=== PATIENT | female | born 1970 | race American Indian/Alaskan Native ===

== ENCOUNTER 2018-01-11 14:16 | Inpatient (IN) | payer MEDICAID ==
[2018-01-11 14:16] VITALS: BMI 33.9
[2018-01-11] MEDS ORDERED: Sodium Chloride 0.9% 1,000 ML IV ONE (15:06)
[2018-01-11 15:35] LABS: BASO # 0.1 K/uL (0.0-0.2); BASO % 1.1 % (0.0-2.0); EOS % 0.5 % (0.0-4.0); HEMOGLOBIN 12.7 g/dL (11.0-16.0); LYMPH # 2.2 K/uL (1.0-4.3); MEAN CELL VOLUME 85.4 fL (81.0-99.0); MEAN CORPUSCULAR HEMOGLOBIN 28.7 pg (27.0-31.0); MEAN CORPUSCULAR HGB CONC 33.6 g/dL (33.0-37.0); MEAN PLATELET VOLUME 8.4 fL (7.2-11.7); MONO # 0.3 K/uL (0.0-0.8); MONO % 3.7 % (0.0-10.0); NEUT # 4.9 K/uL (1.8-7.0); NEUT % 65.7 % (50.0-75.0); RBC 4.41 Mil/uL (3.80-5.20); RED CELL DISTRIBUTION WIDTH 13.4 % (11.5-14.5); WHITE BLOOD COUNT 7.5 K/uL (4.8-10.8)
[2018-01-11 15:41] LABS: SQUAMOUS EPITHIAL < 1 /hpf (0-5); URINE BILIRUBIN NEGATIVE (NEGATIVE); URINE BLOOD NEGATIVE (NEGATIVE); URINE CLARITY Clear (Clear); URINE COLOR Yellow (YELLOW); URINE GLUCOSE (UA) NORMAL (Normal); URINE LEUKOCYTE ESTERASE NEG Leu/uL (Negative); URINE PROTEIN NEGATIVE (NEGATIVE); URINE UROBILINOGEN NORMAL mg/dL (0.2-1.0)
[2018-01-11 15:42] LABS: INR 1.1; PROTHROMBIN TIME 11.8 SECONDS (9.7-12.2)
[2018-01-11 15:52] LABS: ALBUMIN 3.9 g/dL (3.5-5.0); CALCIUM 8.7 mg/dl (8.6-10.4); GFR AFRICAN-AMERICAN > 60; GFR NON-AFRICAN AMERICAN > 60
[2018-01-11 15:53] LABS: ALT/SGPT 10 U/L (9-52); AST/SGOT 25 U/L (14-36); BLOOD UREA NITROGEN 7 mg/dL (7-17)
[2018-01-11] MEDS ORDERED: Metoprolol Succinate 25 mg XL Tab PO ONE (16:20)
--- NOTE | 2018-01-11 16:31 | RAD ---
PROCEDURE: CHEST RADIOGRAPH, 1 VIEW HISTORY: Chest pain COMPARISON: 01/08/2016. FINDINGS: LUNGS: The lungs are well inflated and clear. PLEURA: No pneumothorax or pleural fluid seen. CARDIOVASCULAR: The heart is normal in size. OSSEOUS STRUCTURES: No significant abnormalities. VISUALIZED UPPER ABDOMEN: Normal. OTHER FINDINGS: None. IMPRESSION: No active pulmonary disease.
--- NOTE | 2018-01-11 16:48 | C.PDOC ---
History Of Present Illness 47 yo female w/PMHx of CAD, HTN, BIBA for evaluation of Left sided chest pain gradually developed since yesterday. Pt reports, " under a lot of stress now because of my son, had some argument with him yesterday'. Pt sts, this AM developed throat tightness " was unable to swallow", associated with chest tightness, dyspnea. Pt sts, was given medication by ambulance ( ASA 325mg) and at present time, [id number]. Pt admits, had card cath and stress done 3 yrs ago with normal results. Otherwise, pt denies headache,dizziness, visual changes, focal deficits, neck pain, diaphoresis, palpitation, cough, wheezing, abd. pain, N/V/D, back pain. At the time of evaluation, pt appears comfortable, not in any apparent distress. Time Seen by Provider: 01/11/18 14:44 Chief Complaint (Nursing): Chest Pain History Per: Patient Onset/Duration Of Symptoms: Gradual Past Medical History Reviewed: Historical Data, Nursing Documentation, Vital Signs Vital Signs: Last Vital Signs Temp 98.8 F 01/11/18 14:27 Pulse 70 01/11/18 14:27 Resp 16 01/11/18 14:27 BP 146/84 01/11/18 14:27 Pulse Ox 99 01/11/18 16:55 - Medical History PMH: Asthma, Diabetes, HTN Denies: Chronic Kidney Disease Surgical History: Endoscopy - [facility] Procedures ESOPHAGOGASTRODUODENOSCOPY [EGD] W/CLOSED BIOPSY (12/20/14) Family History: States: Unknown Family Hx - Social History Hx Tobacco Use: No Hx Alcohol Use: No Hx Substance Use: No - Immunization History Hx Tetanus Toxoid Vaccination: No Hx Influenza Vaccination: No Hx Pneumococcal Vaccination: No Review Of Systems Except As Marked, All Systems Reviewed And Found Negative. Constitutional: Negative for: Fever, Chills Eyes: Negative for: Vision Change ENT: Positive for: Throat Pain. Negative for: Ear Discharge, Nose Discharge, Nose Congestion, Throat Swelling Cardiovascular: Positive for: Chest Pain. Negative for: Palpitations, Orthopnea , Edema, Light Headedness Respiratory: Negative for: Cough, Shortness of Breath, Wheezing Gastrointestinal: Negative for: Nausea, Vomiting, Abdominal Pain, Diarrhea Genitourinary: Negative for: Incontinence Musculoskeletal: Negative for: Neck Pain, Back Pain Neurological: Negative for: Altered Mental Status, Headache, Dizziness Physical Exam - Physical Exam Appears: Well, Non-toxic, No Acute Distress Skin: Normal Color, Warm, Dry, No Rash Head: Normacephalic Eye(s): bilateral: PERRL Nose: No Flaring, No Discharge Oral Mucosa: Moist, No Drooling Tongue: Normal Appearing Throat: No Erythema, No Drooling Neck: Trachea Midline, Supple Cardiovascular: Rhythm Regular, No Murmur, No JVD, Other ((-) carotid bruits B/L ) Respiratory: No Decreased Breath Sounds, No Accessory Muscle Use, No Stridor, No Wheezing Gastrointestinal/Abdominal: Soft, No Tenderness, No Distention, No Guarding, No Rebound Back: No CVA Tenderness Extremity: Normal ROM, No Pedal Edema, No Deformity Neurological/Psych: Oriented x3, Normal Speech ED Course And Treatment - Laboratory Results Result Diagrams: 01/11/18 15:28 01/11/18 15:28 Lab Interpretation: No Acute Changes Urine POC: Negative ECG: Interpreted By Me, Viewed By Me ECG Interpretation: Normal Interpretation Of ECG: SR@67/min, LAD, T wave inversion in III, no acute ST-T changes O2 Sat by Pulse Oximetry: 99 Pulse Ox Interpretation: Normal - Radiology CXR: Interpreted by Me, Viewed By Me, Read By Radiologist CXR Interpretation: Yes: No Acute Disease, Cardiomegaly Progress Note: pt with PMHx of diabetes,hypertension, cardiomegaly who is having chest pain and trouble swallowing. Plan to admit. Discussed with and admission arranged with card. consult. Pt agrees with plan. Disposition - Disposition Disposition: HOSPITALIZED Disposition Time: 16:45 Condition: STABLE Forms: [employer] (Arabic) - Clinical Impression Clinical Impression: Chest pain, Dysphagia
[2018-01-11] MEDS ORDERED: Metoprolol Succinate 50 mg XL Tab PO ONE (17:49)
[2018-01-11 21:28] VITALS: RESP 20
[2018-01-11] MEDS ORDERED: (Lantus) Insulin Glargine, Recombinant SC SCH (22:00)
[2018-01-11] MEDS ORDERED: Albuterol HFA 90 mcg/actuation (8 g) INH PRN (22:11)
[2018-01-11] MEDS: (Novolog) Insulin Aspart, Recombinant 100 u/ml 10 ml vial SC SCH (22:15)
[2018-01-12 01:57] LABS: CK-MB 0.43 ng/mL (0.0-3.38)
--- NOTE | 2018-01-12 07:47 | CP.PCM.PN ---
Subjective - Date & Time of Evaluation Date of Evaluation: 01/12/18 Time of Evaluation: 07:46 - Subjective Subjective: Progress Note for Dr. Groves's service Pt seen and examined at bedside. She is a 47 y/o female with PMHx of CAD, HTN, BIBA who presented yesterday for evaluation of Left sided chest pain that was gradually worsening throughout the day. She reported emotional stress. She complained of chest/throat "tightness" and dyspnea. Pt stated she had cardiac cath and stress done 3 yrs ago with normal results. She denied headache, dizziness, visual changes, focal deficits, neck pain, diaphoresis, palpitation, cough, wheezing, abd. pain, N/V/D, back pain. At the time of evaluation, pt appears comfortable, not in any apparent distress. Pmhx: Pshx: Meds: Allergies: Fam hx: Soc hx: Objective - Vital Signs/Intake and Output Vital Signs (last 24 hours): Temp Pulse Resp BP Pulse Ox 98.1 F 69 20 133/85 98 01/11/18 23:10 01/12/18 01:00 01/11/18 23:10 01/11/18 23:10 01/11/18 23:10 - Medications Medications: Current Medications Albuterol (Ventolin Hfa 90 Mcg/Actuation (8 G)) 1 puff INH RQ4 PRN PRN Reason: Shortness of Breath Enoxaparin Sodium (Lovenox) 40 mg SC DAILY TOM Fluticasone Propionate (Flonase) 1 spr JEROD HS TOM Insulin Aspart (Novolog) 0 unit SC ACHS TOM PRN Reason: Protocol Last Admin: 01/11/18 22:15 Dose: Not Given Insulin Glargine (Lantus) 20 unit SC HS TOM Last Admin: 01/11/18 22:15 Dose: Not Given Zolpidem Tartrate (Ambien) 5 mg PO HS PRN PRN Reason: Insomnia - Labs Labs: 01/11/18 15:28 01/11/18 15:28 PT 11.8 SECONDS (9.7-12.2) 01/11/18 15:28 INR 1.1 01/11/18 15:28 APTT 23 SECONDS (21-34) 01/11/18 15:28
--- NOTE | 2018-01-12 08:19 | CP.PCM.PN ---
Subjective - Date & Time of Evaluation Date of Evaluation: 01/12/18 Time of Evaluation: 08:00 - Subjective Subjective: nuclear stress test performed. await nuclear images Objective - Vital Signs/Intake and Output Vital Signs (last 24 hours): Temp Pulse Resp BP Pulse Ox 97.4 F L 66 20 153/89 H 99 01/12/18 07:50 01/12/18 07:50 01/12/18 07:50 01/12/18 07:50 01/12/18 07:50 - Medications Medications: Current Medications Albuterol (Ventolin Hfa 90 Mcg/Actuation (8 G)) 1 puff INH RQ4 PRN PRN Reason: Shortness of Breath Enoxaparin Sodium (Lovenox) 40 mg SC DAILY TOM Fluticasone Propionate (Flonase) 1 spr JEROD HS TOM Insulin Aspart (Novolog) 0 unit SC ACHS TOM PRN Reason: Protocol Last Admin: 01/11/18 22:15 Dose: Not Given Insulin Glargine (Lantus) 20 unit SC HS TOM Last Admin: 01/11/18 22:15 Dose: Not Given Zolpidem Tartrate (Ambien) 5 mg PO HS PRN PRN Reason: Insomnia - Labs Labs: 01/11/18 15:28 01/11/18 15:28 PT 11.8 SECONDS (9.7-12.2) 01/11/18 15:28 INR 1.1 01/11/18 15:28 APTT 23 SECONDS (21-34) 01/11/18 15:28
--- NOTE | 2018-01-12 08:19 | CP.PCM.CON ---
History of Present Illness - History of Present Illness History of Present Illness: I was asked to see patient by Dr Hou. Patient is a 47 year old female with PMH HTN, hypercholesteroemia DM who presents with chest pain. Symptoms are substernal with radiation to the shoulder. There is associatred dyspnea. Review of Systems - Constitutional Constitutional: absent: As Per HPI, Anorexia, Chills, Daytime Sleepiness, Excessive Sweating, Fatigue, Fever, Frequent Falls, Headache, Increased Appetite , Lethargy, Malaise, Night Sweats, Snoring, Sleep Apnea, Weight Gain, Weight Loss, Weakness, Other - EENT Eyes: absent: As Per HPI, Blind Spots, Blurred Vision, Change in Vision, Decreased Night Vision, Diplopia, Discharge, Dry Eye, Exophthalmos, Floaters, Irritation, Itchy Eyes, Loss of Peripheral Vision, Pain, Photophobia, Requires Corrective Lenses, Sees Flashes, Spots in Vision, Tunnel Vision, Other Visual Disturbances, Loss of Vision, Other Ears: absent: As Per HPI, Decreased Hearing, Ear Discharge, Ear Pain, Tinnitus, Abnormal Hearing, Disequilibrium, Dizziness, Other Nose/Mouth/Throat: absent: As Per HPI, Epistaxis, Nasal Congestion, Nasal Discharge, Nasal Obstruction, Nasal Trauma, Nose Pain, Post Nasal Drip, Sinus Pain, Sinus Pressure, Bleeding Gums, Change in Voice, Dental Pain, Dry Mouth, Dysphagia, Halitosis, Hoarsness, Lip Swelling, Mouth Lesions, Mouth Pain, Odynophagia, Sore Throat, Throat Swelling, Tongue Swelling, Facial Pain, Neck Pain, Neck Mass, Other - Cardiovascular Cardiovascular: absent: As Per HPI, Acrocyanosis, Chest Pain, Chest Pain at Rest , Chest Pain with Activity, Claudication, Diaphoresis, Dyspnea, Dyspnea on Exertion, Edema, Irregular Heart Rhythm, Pain Radiating to Arm/Neck/Jaw, Leg Edema, Leg Ulcers, Lightheadedness, Orthopnea, Palpitations, Paroxysmal Nocturnal Dyspnea, Pedal Edema, Radiating Pain, Rapid Heart Rate, Slow Heart Rate, Syncope, Other - Respiratory Respiratory: absent: As Per HPI, Cough, Dyspnea, Hemoptysis, Dyspnea on Exertion , Wheezing, Snoring, Stridor, Pain on Inspiration, Chest Congestion, Excessive Mucous Production, Change in Mucous Color, Pain with Coughing, Other - Gastrointestinal Gastrointestinal: absent: As Per HPI, Abdominal Pain, Belching, Bloating, Change in Bowel Habits, Change in Stool Character, Coffee Ground Emesis, Constipation, Cramping, Diarrhea, Dyspepsia, Dysphagia, Early Satiety, Excessive Flatus, Fecal Incontinence, Heartburn, Hematemesis, Hematochezia, Loose Stools, Melena, Nausea, Odynophagia, Temesmus, Vomiting, Other - Genitourinary Genitourinary: absent: As Per HPI, Change in Urinary Stream, Difficulty Urinating, Dysuria, Flank Pain, Hematuria, Pyuria, Nocturia, Urinary Incontinence, Urinary Frequency, Urinary Hesitance, Urinary Urgency, Voiding Freq/Small Amts, Freq UTI, Hx Renal/Bladder Calculi, Hx /Renal Surgery, Bladder Distension, Other - Musculoskeletal Musculoskeletal: absent: As Per HPI, Abnormal Gait, Arthralgias, Atrophy, Back Pain, Deformity, Joint Swelling, Limited Range of Motion, Loss of Height, Muscle Cramps, Muscle Weakness, Myalgias, Neck Pain, Numbness, Radiating Pain into Limb, Stiffness, Tingling, Other - Integumentary Integumentary: absent: As Per HPI, Acne, Alopecia, Bleeding Lesions, Change in Hair, Change in Nails, Change in Pigmentation, Changing Lesions, Dry Skin, Erythema, Furuncle, Hirsutism, Lesions, New Lesions, Non-Healing Lesions, Photosensitivity, Pruritus, Rash, Skin Pain, Skin Ulcer, Sores, Striae, Swelling , Unusual Bruising, Wounds, Jaundice, Other - Neurological Neurological: absent: As Per HPI, Abnormal Gait, Abnormal Hearing, Abnormal Movements, Abnormal Speech, Behavioral Changes, Burning Sensations, Confusion, Convulsions, Disequilibrium, Dizziness, Numbness, Focal Weakness, Frequent Falls , Headaches, Lack of Coordination, Loss of Vision, Memory Loss, Paresthesias, Radicular Pain, Restless Legs, Sensory Deficit, Syncope, Tingling, Tremor, Vertigo, Weakness, Other Visual Disturbances, Other - Psychiatric Psychiatric: absent: As Per HPI, Abnormal Sleep Pattern, Anhedonia, Anxiety, Auditory Hallucinations, Behavioral Changes, Change in Appetite, Change in Libido, Confusion, Depression, Difficulty Concentrating, Hallucinations, Homicidal Ideation, Hopelessness, Irritability, Memory Loss, Mood Swings, Panic Attacks, Paranoia, Suicidal Ideation, Visual Hallucinations, Tactile Hallucinations, Other - Endocrine Endocrine: absent: As Per HPI, Change in Body Appearance, Change in Libido, Cold Intolorance, Deepening of Voice, Excessive Sweating, Fatigue, Flushing, Heat Intolorance, Increase in Ring/Shoe/Hat Size, Palpitations, Polydipsia, Polyphagia, Polyuria, Other - Hematologic/Lymphatic Hematologic: absent: As Per HPI, Easy Bleeding, Easy Bruising, Lymphadenopathy, Other Past Patient History - Past Medical History & Family History Past Medical History?: Yes - Past Social History Smoking Status: Never Smoked - CARDIAC Hx Hypertension: Yes - PULMONARY Hx Asthma: Yes - NEUROLOGICAL Hx Neurological Disorder: No - HEENT Hx HEENT Problems: No - RENAL Hx Chronic Kidney Disease: No - ENDOCRINE/METABOLIC Hx Endocrine Disorders: Yes Hx Diabetes Mellitus Type 2: Yes - HEMATOLOGICAL/ONCOLOGICAL Hx Blood Disorders: No - INTEGUMENTARY Hx Dermatological Problems: No - MUSCULOSKELETAL/RHEUMATOLOGICAL Hx Musculoskeletal Disorders: No Hx Falls: No - GASTROINTESTINAL Hx Gastrointestinal Disorders: No - GENITOURINARY/GYNECOLOGICAL Hx Genitourinary Disorders: No - PSYCHIATRIC Hx Substance Use: No - SURGICAL HISTORY Hx Surgeries: Yes Other/Comment: breast bilateral reduction,nasal polpys at age 13, x1 - ANESTHESIA Hx Anesthesia: Yes Hx Anesthesia Reactions: No Hx Malignant Hyperthermia: No Meds Allergies/Adverse Reactions: Allergies Allergy/AdvReac Type Severity Reaction Status Date / Time aspirin Allergy SWELLING Verified 01/11/18 14:33 latex Allergy SWELLING Verified 01/11/18 14:33 shrimp Allergy SHORTNESS Verified 01/11/18 14:33 OF BREATH - Medications Medications: Current Medications Albuterol (Ventolin Hfa 90 Mcg/Actuation (8 G)) 1 puff INH RQ4 PRN PRN Reason: Shortness of Breath Enoxaparin Sodium (Lovenox) 40 mg SC DAILY TOM Fluticasone Propionate (Flonase) 1 spr JEROD HS TOM Insulin Aspart (Novolog) 0 unit SC ACHS TOM PRN Reason: Protocol Last Admin: 01/11/18 22:15 Dose: Not Given Insulin Glargine (Lantus) 20 unit SC HS TOM Last Admin: 01/11/18 22:15 Dose: Not Given Zolpidem Tartrate (Ambien) 5 mg PO HS PRN PRN Reason: Insomnia Physical Exam - Constitutional Appears: Non-toxic - Head Exam Head Exam: NORMAL INSPECTION - Eye Exam Eye Exam: Normal appearance - ENT Exam ENT Exam: Mucous Membranes Moist - Neck Exam Neck exam: Positive for: Full Rom - Respiratory Exam Respiratory Exam: NORMAL BREATHING PATTERN - Cardiovascular Exam Cardiovascular Exam: REGULAR RHYTHM - GI/Abdominal Exam GI & Abdominal Exam: Normal Bowel Sounds - Rectal Exam Rectal Exam: Deferred - Extremities Exam Extremities exam: Positive for: normal inspection - Back Exam Back exam: NORMAL INSPECTION - Neurological Exam Neurological exam: Oriented x3 - Psychiatric Exam Psychiatric exam: Normal Mood - Skin Skin Exam: Normal Color Results - Vital Signs Recent Vital Signs: Last Vital Signs Temp 97.4 F L 01/12/18 07:50 Pulse 66 01/12/18 07:50 Resp 20 01/12/18 07:50 BP 153/89 H 01/12/18 07:50 Pulse Ox 99 01/12/18 07:50 - Labs Result Diagrams: 01/11/18 15:28 01/11/18 15:28 Labs: Laboratory Results - last 24 hr 01/11/18 01/11/18 01/11/18 15:18 15:28 15:28 WBC 7.5 RBC 4.41 Hgb 12.7 Hct 37.6 MCV 85.4 MCH 28.7 MCHC 33.6 RDW 13.4 Plt Count 335 MPV 8.4 Neut % (Auto) 65.7 Lymph % (Auto) 29.0 [place] % (Auto) 3.7 Eos % (Auto) 0.5 Baso % (Auto) 1.1 Neut # (Auto) 4.9 Lymph # (Auto) 2.2 [place] # (Auto) 0.3 Eos # (Auto) 0.0 Baso # (Auto) 0.1 PT 11.8 INR 1.1 APTT 23 Sodium Potassium Chloride Carbon Dioxide Anion Gap BUN Creatinine Est GFR ( Amer) Est GFR (Non-Af Amer) POC Glucose (mg/dL) Random Glucose Calcium Total Bilirubin AST ALT Alkaline Phosphatase Total Creatine Kinase CK-MB (Mass) Troponin I NT-Pro-B Natriuret Pep Total Protein Albumin Globulin Albumin/Globulin Ratio Urine Color Urine Clarity Urine pH Ur Specific [place] Urine Protein Urine Glucose (UA) Urine Ketones Urine Blood Urine Nitrate Urine Bilirubin Urine Urobilinogen Ur Leukocyte Esterase Urine WBC (Auto) Urine RBC (Auto) Ur Squamous Epith Cells Hyaline Casts Urine HCG, Qual Negative 01/11/18 01/11/18 01/11/18 15:28 15:28 21:58 WBC RBC Hgb Hct MCV MCH MCHC RDW Plt Count MPV Neut % (Auto) Lymph % (Auto) [place] % (Auto) Eos % (Auto) Baso % (Auto) Neut # (Auto) Lymph # (Auto) [place] # (Auto) Eos # (Auto) Baso # (Auto) PT INR APTT Sodium 141 Potassium 4.1 Chloride 104 Carbon Dioxide 26 Anion Gap 16 BUN 7 Creatinine 0.6 L Est GFR ( Amer) > 60 Est GFR (Non-Af Amer) > 60 POC Glucose (mg/dL) 113 H Random Glucose 142 H Calcium 8.7 Total Bilirubin 1.0 AST 25 ALT 10 Alkaline Phosphatase 79 Total Creatine Kinase CK-MB (Mass) Troponin I < 0.0120 NT-Pro-B Natriuret Pep 73.0 Total Protein 7.9 Albumin 3.9 Globulin 3.9 Albumin/Globulin Ratio 1.0 Urine Color Yellow Urine Clarity Clear Urine pH 5.0 Ur Specific [place] 1.019 Urine Protein Negative Urine Glucose (UA) Normal Urine Ketones 1+ H Urine Blood Negative Urine Nitrate Negative Urine Bilirubin Negative Urine Urobilinogen Normal Ur Leukocyte Esterase Neg Urine WBC (Auto) 1 Urine RBC (Auto) < 1 Ur Squamous Epith Cells < 1 Hyaline Casts 3-5 H Urine HCG, Qual 01/12/18 01/12/18 01/12/18 01:14 06:34 07:46 WBC RBC Hgb Hct MCV MCH MCHC RDW Plt Count MPV Neut % (Auto) Lymph % (Auto) [place] % (Auto) Eos % (Auto) Baso % (Auto) Neut # (Auto) Lymph # (Auto) [place] # (Auto) Eos # (Auto) Baso # (Auto) PT INR APTT Sodium Potassium Chloride Carbon Dioxide Anion Gap BUN Creatinine Est GFR ( Amer) Est GFR (Non-Af Amer) POC Glucose (mg/dL) 131 H Random Glucose Calcium Total Bilirubin AST ALT Alkaline Phosphatase Total Creatine Kinase 120 113 CK-MB (Mass) 0.43 Troponin I < 0.0120 NT-Pro-B Natriuret Pep Total Protein Albumin Globulin Albumin/Globulin Ratio Urine Color Urine Clarity Urine pH Ur Specific [place] Urine Protein Urine Glucose (UA) Urine Ketones Urine Blood Urine Nitrate Urine Bilirubin Urine Urobilinogen Ur Leukocyte Esterase Urine WBC (Auto) Urine RBC (Auto) Ur Squamous Epith Cells Hyaline Casts Urine HCG, Qual - EKG Data EKG Interpreted by: Myself EKG shows normal: Sinus rhythm Assessment & Plan (1) Chest pain Assessment and Plan: patient has risk factors for CAD goiven HTN and DM. recommend nuclear stress test. risk factors discussed. Status: Acute
[2018-01-12 08:22] LABS: CK-MB 0.38 ng/mL (0.0-3.38)
[2018-01-12] MEDS: (Novolog) Insulin Aspart, Recombinant 100 u/ml 10 ml vial SC SCH ×3 (08:25→16:50)
[2018-01-12] MEDS ORDERED: Enoxaparin 40 mg Syringe SC SCH ×2 (10:00)
--- NOTE | 2018-01-12 10:36 | CP.PCM.PN ---
Subjective - Date & Time of Evaluation Date of Evaluation: 01/12/18 Time of Evaluation: 10:35 - Subjective Subjective: Progress Note for Dr. Groves's Service Pt seen and examined at bedside. PMHx: PSHx: Meds: All: FamHx: SocHx: Objective - Vital Signs/Intake and Output Vital Signs (last 24 hours): Temp Pulse Resp BP Pulse Ox 97.4 F L 66 20 153/89 H 99 01/12/18 07:50 01/12/18 07:50 01/12/18 07:50 01/12/18 07:50 01/12/18 07:50 - Medications Medications: Current Medications Albuterol (Ventolin Hfa 90 Mcg/Actuation (8 G)) 1 puff INH RQ4 PRN PRN Reason: Shortness of Breath Enoxaparin Sodium (Lovenox) 40 mg SC DAILY TOM Last Admin: 01/12/18 10:28 Dose: 40 mg Fluticasone Propionate (Flonase) 1 spr JEROD HS TOM Insulin Aspart (Novolog) 0 unit SC ACHS TOM PRN Reason: Protocol Last Admin: 01/12/18 08:25 Dose: Not Given Insulin Glargine (Lantus) 20 unit SC HS TOM Last Admin: 01/11/18 22:15 Dose: Not Given Zolpidem Tartrate (Ambien) 5 mg PO HS PRN PRN Reason: Insomnia - Labs Labs: 01/11/18 15:28 01/11/18 15:28 PT 11.8 SECONDS (9.7-12.2) 01/11/18 15:28 INR 1.1 01/11/18 15:28 APTT 23 SECONDS (21-34) 01/11/18 15:28 Assessment and Plan - Assessment and Plan (Free Text) Plan: Chest pain R/O ACS Trop- negative x3 No acute changes on EKG BNP 73 Nuclear stress test today- follow up results CXR- negative for acute changes Diabetes Mellitus II ISS Fingersticks ACHS Lantus 20u sc hs Insomnia Ambien 5mg PO hs prn Asthma Ventolin 1 Puff q4hrs prn PPX Lovenox 40mg sc daily
--- NOTE | 2018-01-12 11:53 | CP.PCM.PN ---
Subjective - Date & Time of Evaluation Date of Evaluation: 01/12/18 Time of Evaluation: 11:53 - Subjective Subjective: PGY-[address] Groves's service: Pt seen and examined at bedside. Nursing reports pt EKG this AM showed 1st degree AV block. Patient for stress test imaging this AM. Pt found lying comfortably with her at bedside. She denies current chest pain, palpitations, or SOB. She is a 47 y/o female with PMHx of CAD, HTN, BIBA who presented yesterday for evaluation of Left sided chest pain that was gradually worsening throughout the day. She reported emotional stress. She complained of chest/throat "tightness" and dyspnea. Pt stated she had cardiac cath and stress done 3 yrs ago with normal results. She denied headache,dizziness, visual changes, focal deficits, neck pain, diaphoresis, palpitation, cough, wheezing, abd. pain, N/V/D, back pain. Objective - Vital Signs/Intake and Output Vital Signs (last 24 hours): Temp Pulse Resp BP Pulse Ox 97.4 F L 66 20 153/89 H 99 01/12/18 07:50 01/12/18 07:50 01/12/18 07:50 01/12/18 07:50 01/12/18 07:50 - Medications Medications: Current Medications Albuterol (Ventolin Hfa 90 Mcg/Actuation (8 G)) 1 puff INH RQ4 PRN PRN Reason: Shortness of Breath Enoxaparin Sodium (Lovenox) 40 mg SC DAILY [facility] Last Admin: 01/12/18 10:28 Dose: 40 mg Fluticasone Propionate (Flonase) 1 spr JEROD HS [facility] Insulin Aspart (Novolog) 0 unit SC ACHS TOM PRN Reason: Protocol Last Admin: 01/12/18 08:25 Dose: Not Given Insulin Glargine (Lantus) 20 unit SC HS [facility] Last Admin: 01/11/18 22:15 Dose: Not Given Zolpidem Tartrate (Ambien) 5 mg PO HS PRN PRN Reason: Insomnia - Labs Labs: 01/11/18 15:28 01/11/18 15:28 PT 11.8 SECONDS (9.7-12.2) 01/11/18 15:28 INR 1.1 01/11/18 15:28 APTT 23 SECONDS (21-34) 01/11/18 15:28 - Constitutional Appears: Non-toxic, No Acute Distress, Other (obesity) - Head Exam Head Exam: ATRAUMATIC, NORMAL INSPECTION - Eye Exam Eye Exam: EOMI. absent: Scleral icterus Pupil Exam: PERRL - ENT Exam ENT Exam: Mucous Membranes Moist - Respiratory Exam Respiratory Exam: Clear to Ausculation Bilateral, NORMAL BREATHING PATTERN - Cardiovascular Exam Cardiovascular Exam: REGULAR RHYTHM, +S1, +S2 - GI/Abdominal Exam GI & Abdominal Exam: Soft, Normal Bowel Sounds. 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 Groves
[2018-01-12] MEDS ORDERED: Dextrose 50% SYRINGE Inj (50 ml) IV PRN (15:51)
[2018-01-12] MEDS ORDERED: Glucagon Recombinant 1 mg Inj IM PRN (15:51)
--- NOTE | 2018-01-12 15:58 | CARD ---
APPROVED REPORT Protocol: MAUREEN Test Type: MYOVIEW STRESS Test Indications: CHEST PAIN,R/O ACS Medications: LIST SCAN Medical History: CHEST PAIN,R/O ACS Target HR: 171 bpm Resting ECG: normal Resting Heart Rate: 84 bpm Resting Blood Pressure: 120/80mmHg submaximum (85%): 145 bpm TEST SUMMARY PRETESTWARM-UP02:[id number]/80.3. EXERCISESTAGE 103:[id number]/80.1. EXERCISESTAGE 201:[id number]/80.30. OQCJTJAL94:[id number]/84.8. POST EXERCISE Reason for Termination: Fatigue Target HR: No Max HR: 134 bpm 78% of Maximum Predicted HR: 171 bpm Exercise duration: 04:15 min:sec, 2 Stage Exercise capacity: 7.0METs Max Blood Pressure: 188/80mmHg Blood Pressure response to exercise: normal resting BP - appropriate response Heart Rate response to exercise: appropriate Chest Pain: No, none Angina index: 0 Arrhythmia: Yes, ventricular premature beats-isolated ST Change: No, none Deviation: 0 mm INTERPRETATION Stress EKG Conclusion: AWAIT NUCLEAR IMAGES EXAM: Myocardial Perfusion STRESS/REST Imaging Protocol The imaging protocol used to acquire images was Stress Tc-99m/rest Tc-99m 1 day Stress Spect myocardial perfusion imaging was performed in supine position 40 minutes following the injection of 13.2 mCi of Tc-99 Myoview. Gated Rest Spect was performed 40 minutes after intravenous 32.6 mCi Tc-99 Myoview injection. The images were gated to evaluate regional wall motion and calculate ventricular ejection fraction.Images were reconstructed using backfilter projection method in short horizontal and verticle long axis. Spect slices were generated. RESTING DATA MTO232.08ouQU7.30L/min ESV36.00mlMyocardial Vtdw706.00g Av. Heart Rate65.00bpm EF65.00% STRESS DATA DVF542.24ijLG9.20L/min ESV28.00mlMyocardial Xnam412.00g EF73.00% Regional WT score at stress:0.00 Regional WM score at stress:0.00 Summed WT score at stress:9.00 Av. Heart Rate68.00bpmSummed WM score at stress:1.00 LV Perf. Quant 17 Seg. SSS6.00 17 Seg. SRS5.00 17 Seg. SDS1.00 Stress Defect Extent (% LAD)0.00Rest Defect Extent (% LAD)0.00Rev. Defect Extent (% LAD)0.00 Stress Defect Extent (% LCX)58.80Rest Defect Extent (% LCX)42.50Rev. Defect Extent (% LCX)12.50 Stress Defect Extent (% RCA)0.00Rest Defect Extent (% RCA)0.00Rev. Defect Extent (% RCA)0.00 Stress Defect Extent (% PRINCE)12.80Rest Defect Extent (% PRINCE)8.90Rev. Defect Extent (% PRINCE)3.50 Other Information Quality:Excellent Overall Exercise Capacity: Normal IMPRESSION Normal Myocardial Perfusion exercise stress study Global LV Function: Normal Stress Test Summary: Normal LV Perfusion Summary: Normal Left Ventricle LV Size/Shape: The left ventricle is normal size. LV Thickness: There is normal left ventricular wall thickness. LV Function:Left ventricle systolic function is normal. The Ejection Fraction is 55-60%. Regional Wall Motion:No regional wall motion abnormalities noted. Metabolism/Perfusion There are no perfusion/metabolism defects. Conclusion 1. The stress and resting images show normal perfusion.
[2018-01-12 16:29] VITALS: PULSE 67
[2018-01-12 17:08] VITALS: BP 153/98; TEMP 97.8; O2SAT 98
[2018-01-12] MEDS ORDERED: Fluticasone Nasal 50 mcg/Spray NAS SCH (22:00)
--- NOTE | 2018-01-12 22:33 | CARD ---
APPROVED REPORT EKG Measurement Heart [id number] [place] 190P37 [id number] <Conclusion> Normal sinus rhythm Normal ECG
--- NOTE | 2018-01-13 20:44 | CARD ---
APPROVED REPORT EKG Measurement Heart [id number] [place] 222P78 [id number] <Conclusion> Sinus rhythm with 1st degree AV block Otherwise normal ECG
== END 2018-01-12 17:27 | disposition home or self-care (01) | DRG 133 ==
LOC: C.ER 14:16 → C.9E 16:44 → C.6T 18:04 → C.9E 18:31 → C.6T 20:47
PROVIDERS: ADMIT Internal Medicine Pulmonary Disease; ATTEND Internal Medicine Pulmonary Disease
DX: I25.110 Atherosclerotic heart disease of native coronary artery with unstable angina pectoris (principal); E11.9 Type 2 diabetes mellitus without complications; I10 Essential (primary) hypertension; R13.10 Dysphagia, unspecified; J45.909 Unspecified asthma, uncomplicated; E78.00 Pure hypercholesterolemia, unspecified; G47.00 Insomnia, unspecified; J32.9 Chronic sinusitis, unspecified